=== PATIENT | female | born 2000 | race Caucasian/White ===

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

== ENCOUNTER 2021-02-16 23:24 | Emergency (ER) | payer MEDICAID | END 2021-02-17 00:58 | disposition home or self-care (01) | LOC: JP.ED 23:24 | DX: Z53.21 Procedure and treatment not carried out due to patient leaving prior to being seen by health care provider (principal) ==

== ENCOUNTER 2021-04-14 12:47 | Emergency (ER) | payer MEDICAID ==
--- NOTE | 2021-04-14 13:26 | EDM.PDOC ---
ED HPI GENERAL MEDICAL PROBLEM - General Chief Complaint: Bite:Animal, Insect Stated Complaint: DOG BITE Time Seen by Provider: 04/14/21 13:05 Source of Information: Reports: Patient History Limitations: Reports: No Limitations - History of Present Illness INITIAL COMMENTS - FREE TEXT/NARRATIVE: 20-year-old female was bit on the hands by a friend's dog last night, she cleaned the wound thoroughly initially but thought she should get them checked out today. She has small puncture wounds in the index finger on the right hand. Some mild to moderate swelling of the finger. She also has some small punctures on the left hand near the thumb and dorsal aspect of the MP joint of the index finger. Onset: Sudden Duration: Hour(s): (About 12 hours ago) Location: Reports: Upper Extremity, Left, Upper Extremity, Right Quality: Reports: Sharp Worsens with: Reports: Movement (Moving the finger causes discomfort) Associated Symptoms: Reports: No Other Symptoms - Related Data Allergies Allergy/AdvReac Type Severity Reaction Status Date / Time amoxicillin Allergy Cannot Verified 04/14/21 13:20 Remember Home Meds: Home Meds Pnv No.95/Ferrous Fum/Folic AC [ Vitamins Tablet] 1 tab PO DAILY 12/03/19 [History] FLUoxetine HCl [Fluoxetine HCl] 10 mg PO DAILY #30 capsule 07/02/20 [Rx] lamoTRIgine [Lamotrigine] 25 mg PO DAILY 04/14/21 [History] Past Medical History HEENT History: Reports: Impaired Vision Cardiovascular History: Reports: None Respiratory History: Reports: None Gastrointestinal History: Reports: GERD Genitourinary History: Reports: None [employer] History: Reports: Musculoskeletal History: Reports: Fracture Neurological History: Reports: None Psychiatric History: Reports: Anxiety, Depression Endocrine/Metabolic History: Reports: None Hematologic History: Reports: Anemia Immunologic History: Reports: None Oncologic (Cancer) History: Reports: None Dermatologic History: Reports: None - Infectious Disease History Infectious Disease History: Reports: None - Past Surgical History Head Surgeries/Procedures: Reports: None HEENT Surgical History: Reports: Eye Surgery Cardiovascular Surgical History: Reports: None Respiratory Surgical History: Reports: None GI Surgical History: Reports: Cholecystectomy Female Surgical History: Reports: None Endocrine Surgical History: Reports: None Neurological Surgical History: Reports: None Musculoskeletal Surgical History: Reports: None Oncologic Surgical History: Reports: None Dermatological Surgical History: Reports: None Social & Family History - Caffeine Use Caffeine Use: Reports: Soda Other Caffeine Use: 1 every other day ED ROS GENERAL - Review of Systems Review Of Systems: See Below Constitutional: Denies: Fever, Chills HEENT: Reports: No Symptoms Respiratory: Denies: Shortness of Breath Cardiovascular: Denies: Chest Pain GI/Abdominal: Denies: Nausea, Vomiting Skin: Denies: Erythema Neurological: Denies: Paresthesia ED EXAM, ANIMAL BITE - Physical Exam Exam: See Below Exam Limited By: No Limitations General Appearance: Alert, No Apparent Distress Head: Atraumatic Respiratory/Chest: No Respiratory Distress, Lungs Clear Cardiovascular: Regular Rate, Rhythm Extremities: Other (Exam is otherwise limited to the hands. She has a small puncture wound on the ulnar aspect of the base of the index finger on the right hand, and some superficial scrapes. Also some very small puncture wounds on the left hand around the MP joint and on the thumb) Neurological: Alert, Oriented Psychiatric: Normal Affect, Normal Mood Skin Exam: Normal Color, Warm/Dry Course - Vital Signs Last Recorded V/S: Last Vital Signs Temp 97.7 F 04/14/21 13:21 Pulse 97 04/14/21 13:21 Resp 15 04/14/21 13:21 BP 143/66 H 04/14/21 13:21 Pulse Ox 96 04/14/21 13:21 - Re-Assessments/Exams Free Text/Narrative Re-Assessment/Exam: 04/14/21 13:26 The dog is a friend's dog and can be monitored. She was placed on 300 mg of clindamycin three times a day for the next 5 days, and encouraged to keep the wounds clean. Departure - Departure Time of Disposition: 13:31 Disposition: Home, Self-Care 01 Clinical Impression: Dog bite of right hand Qualifiers: Encounter type: initial encounter Qualified Code(s): S61.451A - Open bite of right hand, initial encounter - Discharge Information Instructions: Animal Bite, Adult, [id number] Referrals: PCP,None [Primary Care Provider] - Forms: ED Department Discharge Care Plan Goals: Take 2 pills of clindamycin three times a day until gone, wash hands frequently and keep wounds clean while healing. Return or recheck if concerns of infection or not healing satisfactorily. Sepsis Event Note (ED) - Focused Exam Vital Signs: Vital Signs Temp Pulse Resp BP Pulse Ox 04/14/21 13:21 97.7 F 97 15 143/66 H 96 04/14/21 13:08 97.7 F 97 15 143/66 H 96
== END 2021-04-14 13:31 | disposition home or self-care (01) ==
LOC: JP.ED 12:47
DX: S60.571A Other superficial bite of hand of right hand, initial encounter (principal); Z88.0 Allergy status to penicillin; W54.0XXA Bitten by dog, initial encounter
CPT/HCPCS: 99283